=== PATIENT | female | born 1950 | race Caucasian/White ===

== ENCOUNTER 2025-02-11 10:08 | Outpatient (AMB) | payer MEDICARE, SELFPAY ==
--- OUTSIDE RECORDS SUMMARY | 2018-05-07 10:55 | XMS_ITS | Continuity of Care Document ---
Author Organization [facility] Address [address] [address] Phone Care Team Providers Care Home Improvement Contractor Name Role Phone Rishi Sy DO Unavailable Unavailable Allergies, Adverse Reactions, Alerts Substance Reaction Status Criticality shrimp Anaphylaxis(severe) Active No Infor mation peach Anaphylaxis(severe) Active No Infor mation Medications Medication Instructions Dosage Effective Dates (start - stop) Status Comments omeprazole 40 mg capsule,delayed release take 1 capsule by oral route every day before a meal 40 MG - Active Tylenol 325 mg tablet take 2 tablet by oral route every 6 hours - Active guaifenesin 100 mg/5 mL oral liquid take 10 milliliter by oral route every 4 hours as needed 200 MG - Active Ativan 0.5 mg tablet take 0.5 tab tid. ALSO 1 tabs daily prn - Active Ditropan XL 10 mg tablet,extended release take 1 tablet by oral route every day - Active gabapentin 100 mg capsule take 1 Capsule by oral route 3 times every day 100 MG - Active metoprolol tartrate 12.5mg ORAL take 2 tablet bid - Active vitamin B12 500 mcg-folic acid 400 mcg tablet tab daily - Active lidocaine 5 % topical patch apply 1 patch by transdermal route every day (May wear up to 12hours.) 1.00 patch - Active ibuprofen 800 mg tablet take 1 tablet by oral route 3 times every day with food 800 MG - Active Prozac 40 mg capsule take 1 capsule by oral route every day in the morning - Active Calcitrate 200 mg (950 mg) tablet take 1 tablet bid - Active aspirin 81 mg ORAL TABLET take 1tab daily - Active Claritin 10 mg tablet take 1 tablet by oral route every day 10 MG - Active EpiPen 2-Floyd 0.3 mg/0.3 mL injection, auto-injector inject 0.3 milliliter by intramuscular route once as needed for anaphylaxis 0.3 MG - Active Imodium A-D 2 mg tablet take 2 tablet by oral route after 1st loose stool and 1 tablet (2 mg) after each next bowel movement; do not exceed 16 mg in 24hrs 4 MG - Active Milk of Magnesia 400 mg/5 mL oral suspension take 30 milliliter by oral route every day as needed, followed by a full glass (8 oz) of liquid 30.00 milliliter - Active trazodone 50 mg tablet take 1 tablet by oral route every day at bedtime 50 MG - Active Vitamin D3 2,000 unit tablet take 1 tablet daily - Active Colace 100 mg capsule take 1 capsule by oral route 2 times every day as needed 100 MG - Active ProAir HFA 90 mcg/actuation aerosol inhaler inhale 2 puff by inhalation route every 4 - 6 hours as needed - Active Symbicort 80 mcg-4.5 mcg/actuation HFA aerosol inhaler inhale 2 puff by inhalation route 2 times every day in the morning and evening 2.00 puff - Active albuterol sulfate 2.5 mg/3 mL (0.083 %) solution for nebulization inhale 3 milliliter by nebulization route 3 times every day as needed 2.5 MG - Active Zyprexa 10 mg tablet take 1 tablet by oral route every day at bedtime - Active isosorbide mononitrate ER 30 mg tablet,extended release 24 hr take 1 tablet by oral route every day in the morning 30 MG - Active Saline Nasal Mist 0.65 % spray aerosol spray 1 each by nasal route 2 times every day 1 each - Active atorvastatin 20 mg tablet take 1 tablet by oral route every day 20 MG - Active Advance Directives Directive Yes / No Effective Date File Name No Information Encounters Encounter Description Practice Location Reason(s) For Visit Diagnoses Date Provider [facility] [address] [place] [address], [id number], [place] tel:[phone] [place] No Information Apr- 9 Yossi Rishi. [address] [place], [place], [id number] , [place]. tel:[phone] [facility], [facility], [place], [place], [id number], [place] [phone] [place] No Information Dec-2 8 Yossi Rishi. [address] [place], [place], [id number] , [place]. tel:[phone] [facility], [facility] [address] [place] [address], [id number], [place] tel:[phone] [place] Cough Sep-2 0 8 ODohbruno Nicolasa. [address] [place] [address], [id number] , [place]. [phone] [facility] [address] [place] [address], [id number], [place] tel:[phone] [place] No Information Dec- 8 Yossi Beckern. [address] [place], [place], [id number] , [place]. [phone] [facility] [address] [place] [address], [id number], [place] tel:[phone] [place] No Information 8 Nikolay Portillo. 101 [facility] [place], [address], [place]. tel:[phone] [facility], [facility] [address] [place], [id number], [place] tel:[phone] [place] Follow Up of BP (chief complaint) Other chest painSchizoaffective disorder, unspecified 8 Link Bandar. [address] [place], [address], [place]. tel:[phone] [facility], [address], [place], [place], [id number], [place] tel:[phone] [place] Follow Up of BP check (chief complaint) HypertensionOther chest painSchizoaffective disorder, unspecified 8 Link Bandar. [address] [place], [address], [place]. tel:[phone] [facility], [address], [place], [place], [id number], [place] tel:[phone] [place] PHV (chief complaint) Weakness 8 Link Bandar. [address] [place], [address], [place]. tel:[phone] [facility], [address], [place], [place], [id number], [place] tel:[phone] [place] Pain in unspecified wrist 8 Link Bandar. [address] [place], [address], [place]. tel:[phone] [facility], [address], [place], [place], [id number], [place] tel:[phone] [place] PHV (chief complaint) Other chest painHyperglycemiaPatient's other noncompliance with medication regimen 8 Link Bandar. [address] [place], [place], [address], [place]. tel:[phone] [facility], [address], [place], [place], [id number], [place] tel:[phone] [place] No Information 8 Link Bandar. [address] [place], [address], [place]. tel:[phone] [facility], [address], [place], [place], [id number], [place] tel:[phone] [place] PHV (chief complaint) DysarthriaOther chest painAnxiety Oct- 8 [facility]ossi Rishi. [address] [facility] [place], [id number] , [place]. tel:[phone] [facility], [address], [place], [place], [id number], [place] tel:[phone] [place] No Information Sep- 8 Yossi Rishi. [address] [facility] [place], [id number] , [place]. tel:[phone] [facility], [facility] [address], [place], [place], [id number], [place] tel:[phone] [place] No Information 8 Link Bandar. [address] [place], [address], [place]. tel:[phone] [facility], [address], [place], [place], [id number], [place] tel:[phone] [place] Post ER visit (chief complaint) Anxiety 8 Nikolay Portillo. [address] [place], [address], [place]. tel: [phone] [facility], [facility] [address], [place], [place], [id number], [place] tel:[phone] [place] PHV (chief complaint) Anxiety 8 Nikolay Portillo. [address] [place], [address], [place]. tel: [phone] [facility], [address], [place], [place], [id number], [place] tel:[phone] [facility] Anxiety 8 Yossi Rishi. 101 [facility] [place], [id number] , [place]. tel: [phone] [facility], [address], [place], [place], [id number], [place] tel:[phone] [place] PHV (chief complaint) Other chest painAnxiety 8 Nikolay Portillo. [address] [place], [address], [place]. tel: [phone] [facility], [facility] [address], [place], [place], [id number], [place] tel:[phone] [place] Unspecified Intellec tual Disability (Intellectual Developmental Disorder)Encounter for routine adult physical exam w/ abnormal finding 8- 8 Yossi Rishi. 101 [facility] [place], [id number] , [place]. tel:[phone] [facility], [facility] [address], [place], [place], [id number], [place] tel:[phone] [place] Encounter for screen ing for respiratory tuberculosis 8 Nikolay Portillo. [address] [place], [address], [place]. tel:[phone] [facility], [facility] [address], [place], [place], [id number], [place] tel:[phone] [place] Onychomycosis 8 Yossi Rishi. 101 [facility] [place], [id number] , [place]. tel:[phone] [facility], [address], [place], [place], [id number], [place] tel:[phone] [place] PHV (chief complaint) Pneumonia 8 Nikolay Portillo. [address] [place], [address], [place]. tel: [phone] [facility], [facility] [address], [place], [place], [id number], [place] tel:[phone] [place] Essential (primary) hypertension 0 8 Arnold Toney. [address] [place], [address]. tel:[phone] [facility] [address] [place] [address], [id number], [place] tel:[phone] [place] Essential (primary) hypertensionEncounter for screening for respiratory TB 8 Nilo Ackerman Nette Fajardo. [address] [place], [id number] . tel: [phone] [facility], [facility], [place], [place], [id number], [place] tel:[phone] [place] Dysphagia 8 Braydon Christy. [address] [place], [address]. tel: [phone] [facility], [address], [id number], [place] [phone] [place] PEE (chief complaint) HypertensionEncounter for routine adult physical exam w/ abnormal findingHyperlipidemiaOther chest painAsthmaPersonal history of anaphylaxisAllergy, unspecified, subsequent encounterIBSGERD w/ esophagitisDisorder of bone densityVitamin D deficiency, unspecifiedOveractive bladderUnspecified urinary incontinenceEdemaOnychomyc osisOsteoarthritis NOSRheumatoid arthritis, unspecifiedRepeated fallsUnspecified Intellectual Disability (Intellectual Developmental Disorder)DepressionAnxiety Panic disorder [episodic paroxysmal anxiety]Agoraphobia with panic disorderInsomnia, unspecifiedEdentulismVisua l lossDysphagiaConstipationV entricular tachycardia 8 Nikolay Portillo. [address] [place], [address], [place]. tel: [phone] [facility], [address], [id number], [place] tel:[phone] [place] No Information 8 Nikolay Portillo. [address] [place], [address], [place]. tel: [phone] Family History Family Member Type Diagnosis Age At Onset No Information Payers Payer name Insurance type Covered green party ID Winsome cho(s) [facility] 16 [id number] Social History Type Description Quantity Date Captured Comments Sex Female Smoking Status No Information Chief Complaint And Reason For Visit No Information Plan Of Treatment Date Type Action Status Referral Ordered: Referrals: Psychiatry. Evaluate and treat Appointment date/timeframe: 09/25/2017 ordered Referral Ordered: Referrals: Dentistry. Evaluate and treat ordered Referral Ordered: Referrals: Podiatry. Evaluate and treat ordered Referral Ordered: Referrals: Ophthalmology. Evaluate and treat Appointment date/timeframe: 10/04/2017 ordered Referral Referred To: Physical Therapy Ordered: Referrals: Physical Therapy. Evaluate and treat ordered History Of Present Illness Encounter Date Complaint History Of Prese nt Illness Follow Up of BP [facility]. She again presented with a chief complaint of chest pain which was intermittent over the previous 2 weeks. She reported that it radiated to her left arm and was brought on by exertion. She also reported feeling weak. She felt like she was going to pass out. She thinks it might have been related to what she was eating. The emergency room performed an extensive workup including labs, telemetry and EKG. These were negative. In addition a CTA of the chest and abdomen were negative for aneurysm or dissection. Following completion of this workup she was discharged in stable condition. Follow Up of BP check He comes t o clinic for post ER follow-up. She has had 2 recent visits November 04 of November 15. Her presentation is not different in any significant way from her previous visits. As expected she ruled out for an PA, telemetry was normal and other workup was negative. She did contact [facility] prior to going to the emergency room cases. However she did not follow instructions to wait until she could be evaluated in clinic. She has had a number of elevated blood pressure readings within recent weeks. Some of his I's 160-180 systolic. She is getting her medications as directed because they are dispensed to her.Her mental health issues continue to be significant problem with her management. Her anxiety and delusions are certainly not under control. She has been compliant with seeing the psychiatrist. Some medications have been changed. There have been notable improvements in her behavior. She has an upcoming appointment soon. 1 disturbing aspect of her behavior was that she went to [facility] on 2 occasions using a pseudonym, Marianela Aaron. She has a delusion that her last name is incorrect. DAVID Ruiz comes [facility] following an ER visit. Over the previous few days she reported to the on-call provider that she felt shaky and weak. She was eating her meals regularly as instructed. Nonetheless, she did not feel well. She reports that she felt as though she were going to pass out. She made several phone calls to call provider with ongoing symptoms. She thought that she was having a diabetic reaction. She denied any headache, dizziness, confusion or pain. Ultimately she went to the emergency room. She cannot provide details regarding the workup but apparently she was on a heart monitor. She was subsequently discharged in satisfactory condition. DAVID Repeated ER visi t for CP and c/o abn blood sugars. Multiple evaluations for CP previously as already documented. Todays episode is not significantly different than prior ones. Negative w/u. ER doctor concluded pain is noncardiac. She was discharged in stable condition. Sara also insists that she has DM or problems with her BS. Review of 5 years of blood sugars reveals that no blood sugars were >151 and none were <79. A1C also normal. No evidence for DM despite her insistents. She has had 15 ER visits so far this year and she has not consistently complied with instructions to call [facility] before going to the ER. DAVID Ruiz comes [facility] for post ER follow-up she was seen in the emergency room October 01 with a chief complaint of slurred speech she reported difficulty getting the words out. She also reportedly had some bilateral arm and leg weakness. She underwent a thorough exam included a BMP, CBC and troponins. EKG was unremarkable. CT scan showed no acute pathology. Physical exam was unremarkable. Slurred speech was previous complaint that has been evaluated. She was discharged home in stable condition.It has been 4 weeks since that episode and reports feeling well without any complaints of neurologic symptoms. In addition she has no complaints of chest pain or shortness of breath which are common symptoms for her. She indicates that she feels generally well. She confirms that her psychiatrist has made some medication adjustments. She indicates that she keeps her so busy which keeps her mind off somatic concerns Post ER visit Sara comes [facility] follow-up. The day prior to her visit she reported that she felt faint. Next day she contacted [facility] spoke with the triage nurse. She felt that she had a low blood sugar. She felt weak and lightheaded. It was recommended that she eat something, sit, relax and take deep breaths. Of note from the dozens of previous ER visits has been no results consistent with diabetes or hypoglycemia. Sara was not convinced and went to the emergency room. Blood work was negative for hypoglycemia. Evaluation was negative for any other acute issues. She was subsequently discharged. As noted previously she has exhibited this behavior for many many years and has been to the emergency room and had negative workups several dozens of times. Her psychiatrist, Dr. Diaz, has been contacted and does not feel as though medications need to be changed. It has been suggested by [facility] that he consider a new psychiatrist DAVID presented to the ER again with c/o dizziness. symptoms had begun that day. she apparently called [facility] before leaving but did not wait for the return call from the enterprise integration architect provider. she felt faint. no other focal neuroloic symptoms are reported. no LOC. associated with anxiety. on ROS she indicated that she also had CP but denied SOB/N/V/Abd pain. She also denied HAWLEY. many previous simlar episodes before and many previous ER w/u have but negative for cardiac or neurologic etiology. DAVID [facility]iz [facility]. This is her third ER visit in the month of August and 10 ER visits since 2017 and 20 ER visits/hospitalizations in 2017. She has had 3 negative nuclear stress tests within the past 5 years. She describes anterior costochondral chest pain as being severe. She reports that it radiates to her left arm. She reports associated shortness of breath unrelieved by resting. She indicates that the chest pain has continued for as long as a week. Nonetheless, she routinely walks 2 her laundry mat which is close to a mile away carrying her clothes on her walker. Taken all together my conclusion from all of this is that she has noncardiac chest pain. She was recently prescribed lidocaine ointment to alleviate this pain. She indicates that Tylenol is ineffective.She has previously been seen in the ER on multiple occasions for hypoglycemic symptoms and lightheadedness. Many blood sugar readings show no hypoglycemia. A1c is negative for diabetes and she is on no medications which would precipitate hypoglycemia. No etiology has been determined to be causing lightheadedness. Vital signs do not support orthostatic hypotension.She has a lifelong history of developmental delay. She also has uncontrolled anxiety. She is currently on Prozac 40 mg daily, Ativan 0.5 mg, one half tab 3 times a day and 1 tab daily when necessary, trazodone 50 mg daily at bedtime and Zyprexa 10 mg daily at bedtime. These has been prescribed her psychiatry provider, Dr. Diaz, at [facility]. PHV Patient comes to clinic for posthospital follow-up. She presented to the emergency room on August 23. She reports waking up with chest discomfort and shortness of breath. She had a nonproductive cough. She felt lightheaded and shaky. She underwent a cardiac workup including an EKG and troponins which were negative. She did have a chest x-ray which was consistent with a left lower lobe pneumonia. She was started on a Z-Floyd and has just completed. She reports feeling significantly better. There are no fevers and oxygen saturation is acceptable. ROSI Ruiz comes [facility] for her posted moment of evaluation. Despite her mental retardation she lived in her own apartment for more than 10 years. It is reportedly clean and well maintained. She is independent with all of her ADLs. She transfers and ambulates independently using her walker. She has a EMS system in place. She dresses and bathes herself. She is reportedly capable of preparing meals to some degree. She has a sister who is also in the [facility] program, Crystal Yañez, but they are not close and it is suggested that they utilize the adult day program on different days. Because of her developmental disabilities she has a guardian, firmware manager Josefina Naranjo ([phone]). She is also supported by [facility] (sample case porter, Zhanna Rodriguez) which includes an outreach support team providing 15 hours per week and assisting her with shopping, appointments, light housecleaning and some cleaning.Past medical history is as documented below. She takes her medications as directed. Her medications are organized by the visiting nurses. Her blood pressure is controlled on her current medical regimen. She is on a statin hyperlipidemia. She has a history of noncardiac chest pain. She has been to the ER on many, many occasions for chest pain or dizziness. She has ruled out for PA on many, many occasions. She has had many negative nuclear stress tests and echocardiograms, most recently performed in February 2017. She has a history for asthma and she uses inhalers originally prescribed by her traffic engineering technician, Dr. Lui Cruz. She has a history of anaphylaxis to bee stings and has a prescription for EpiPen's. She has environmental allergies and uses Claritin and saline spray. She has a history for dysphagia which was worked up with a barium swallow and subsequently the speech therapist recommended swallowing techniques and swallowing exercises. She has a history of GERD on PPI. She has a history of diarrhea and constipation for which she takes when necessary milk Magnesia, Colace or Imodium.. She has a history mild osteopenia with a T score of 1.3 the hip from a DEXA done in 2014. She is on calcium and vitamin D. She has a history for overactive bladder and is on oxybutynin for this. This was originally prescribed by her urologist, Dr. Best. In addition she has incontinence for which she uses incontinence products. She has a history for dependent edema. She also has onychomycosis of her toenails. She has a history of DJD and RA?. She is only on Tylenol when necessary for this. She has a history of repeated falls. As noted she uses a walker she is interested in seeing physical therapy. She has a long lifelong developmental disability. She has been connected with mental health services. She has a legal guardian as noted. She sees a psychiatrist, , for her issues. He prescribes all of her mental health medications.Currently, she was without significant complaint. 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 Instructions Date Instruction Additional Infor mation No Information Assessments Type Assessment Date No Information Goals Health Concern Goal Type Priority Status Date Sara is a high risk for functional decline related to Cognitive Impairment, depression, panic disorder, and anxiety. Sara will remain living safely in the community at her current level of functioning through the next review. Patient Goal New
--- NOTE | 2025-02-11 10:09 | MHC.OFFVIS ---
Intake Visit Reasons: 6m sz Allergies cat dander (CAT) Allergy (Unknown, Unverified 02/11/25 10:10) SWELLING Penicillins (PCN) Allergy (Unknown, Unverified 02/11/25 10:10) unknown shrimp (SHRIMP) Allergy (Unknown, Unverified 02/11/25 10:10) SWELLING Medication List - Last Reconciled 02/11/25 by Marlen Petty CNP aspirin 81 mg PO DAILY atorvastatin 20 mg PO DAILY calcium citrate-vitamin D3 315 mg-5 mcg (200 unit) tabs PO clonidine HCl 0.1 mg PO BID cyanocobalamin (vitamin B-12) mcg PO docusate sodium 100 mg PO BID epinephrine mL IM fluoxetine 40 mg PO DAILY gabapentin 100 mg PO TID isosorbide mononitrate ER 30 mg PO DAILY levetiracetam 500 mg PO BID loratadine 10 mg PO DAILY lorazepam mg PO metoprolol tartrate 25 mg PO DAILY mometasone 50 mcg/actuation 2 sprays intranasal DAILY olanzapine 10 mg PO BEDTIME olanzapine 5 mg PO BEDTIME omeprazole 40 mg PO DAILY oxybutynin chloride ER 10 mg PO DAILY sennosides (senna) mg PO DAILY trazodone 50 mg PO BEDTIME HPI Comments Details: She was doing okay. No seizures. Shaking in her hands was okay, worse when nervous. No functional impairment. No difficulty eating or drinking. Walking with walker, no falls. Behavior has been on and off. Sleep was okay. Some auditory hallucinations in the past. On 05/01/18, she may have had a syncopal episode at home. She says she has poor vision and says that she does not feel anything on her body. She had a CAT scan of her brain, which showed some microvascular changes and irregular low density in the frontal lobe possibly indicating contusion. She had a CT of the cervical spine that did not show any acute injuries. She claims to have very poor vision. MRI showed microvacsular changes and atrophy and a small incidental meningioma. EEG showed prolonged paroxysmal theta and delta discharges c/w seizures. [facility] Medical History (Updated 02/11/25 @ 10:25 by Marlen Petty CNP) Strabismus Schizophrenia Afib COPD (chronic obstructive pulmonary disease) Asthma Hypertension Depression Anxiety Review of Systems Const Denies chills, Denies daytime sleepiness, Denies difficulty sleeping, Denies fatigue, Denies fever(s), Denies frequent falls, Denies headache(s), Denies increased appetite, Denies poor appetite, Denies snoring, Denies weakness, Denies weight gain and Denies weight loss Eyes Denies loss of vision ENT Denies vertigo, Denies dizziness, Denies headache(s) and Denies neck pain Card Denies chest pain at rest, Denies chest pain with activity, Denies syncope, Denies leg edema, Denies palpitations, Denies dyspnea and Denies dyspnea on exertion Resp Denies cough, Denies dyspnea, Denies dyspnea on exertion and Denies snoring GI Denies abdominal pain, Denies constipation, Denies heartburn, Denies diarrhea and Denies nausea Denies urinary frequency, Denies urinary incontinence and Denies urinary urgency Musc Denies abnormal gait, Denies back pain, Denies myalgias, Denies arthralgias, Denies neck pain, Denies numbness and Denies tingling Neuro Denies abnormal gait, Denies vertigo, Denies dizziness, Denies syncope, Denies frequent falls, Denies headache(s), Denies lack of coordination, Denies loss of vision, Denies memory loss, Denies numbness, Denies Other visual disturbances, Denies restless legs, Denies seizure-like activity, Denies tingling, Denies paresthesias, Reports tremor(s) and Denies weakness Psych Reports anxiety, Denies depression, Denies auditory hallucinations, Denies memory loss and Denies visual hallucinations Endo Denies fatigue and Denies palpitations Physical Exam Const Other: General Appearance:? normal, in no acute distress. Heart:? S1, S2 normal, no murmurs. Lungs:? clear anteriorly and posteriorly. Musculoskeletal:? normal. Extremities:? no edema. Psych:? alert, cooperative with exam. Neuro Other: Abnormal Neurological Findings:?Mild intellectual disability. EOM abnormalities, says she cannot move her eyes. No abduction of either eye and limited adduction. Mild jaw tremor. Mild R hand tremor on sustained posture. Very slight rigidity to L hand. Walks with walker.? Mental Status: alert and oriented X 3. Normal attention, orientation, memory, and affect. Cranial Nerves: Pupils are equal, round, and reactive to light. External ocular muscles are abnormal. Visual gordon are full, no ptosis. Face is symmetrical, no facial weakness or droop. Facial sensations are normal. Tongue protrudes in midline. Palate elevates symmetrically. Shoulder shrugging is normal Motor Examination: Normal muscle tone, bulk and strength. No atrophy or fasciculations. No drift of the extended upper extremities. DTR 2+. Plantars are flexor. Sensory Exam: Normal light touch, temperature, pinprick, vibration, and joint-position sensations. Rhomberg sign is absent. Coordination: No ataxia. No titubation. Gait Exam: Cautious with walker. Cerebellar Signs: [id number]-[id number] is okay. Extrapyramidal System: Tremor as above. No rigidity with normal facial expressions. No bradykinesia. No bradyphrenia. Normal arm swing and posture. No propulsion or retropulsion. Speech: Normal. Results Reviewed Results Reviewed: 05/01/18 MRI showed microvacsular changes and atrophy and a small incidental meningioma. EEG showed prolonged paroxysmal theta and delta discharges c/W seizures. 06/10/18 EEG- ABN. DIFF. SLOW. Assessment & Plan Assessment & Plan (1) Seizure disorder: Code(s): G40.909 - Epilepsy, unspecified, not intractable, without status epilepticus Category: Medical Plan: Continue levetiracetam 500mg 1 tablet twice a day. (2) Tremor: Code(s): R25.1 - Tremor, unspecified Category: Medical Plan: Tremor was mild and there was no significant functional impairment. No medication was needed at this time. Medications: New levetiracetam 500 mg PO BID 60 tabs 5RF 30 days Coding Level of Care Code Est Pt Level 4 (63919) Diagnoses Seizure disorder G40.909 Tremor R25.1
--- OUTSIDE RECORDS SUMMARY | 2025-02-11 12:14 | XMS_ITS | Encounter Summary ---
Author Organization [facility] Address [address] [place] [address] Care Team Providers Care Echocardiography Radiology Technologist Name Role Phone Jeremias Wilkins MD Primary Care Provider [phone] Encounter Details Date Type Department Care Team ([facility] Contact Info) Description 01/29/2025 Results Follow-Up Endocrinology [address] [phone] Amando Newman MD [address] [place] [phone] Social History Tobacco Use Types Packs/Day Years Used Date Smoking Tobacco: Former Smokeless Tobacco: Never Alcohol Use Standard Drinks/Week Comments No 0 (1 standard drink = 0.6 oz pur e alcohol) Comments No Sex and Gender Information Value Date Recorded Sex Assigned at Female 10/22/2024 10:01 AM EDT Legal Sex Female 10:00 PM EST Gender Identity Female 10/22/2024 10:01 AM EDT Sexual Orientation Straight 10/22/2024 10 :01 AM EDT documented as of this encounter Plan of Treatment Upcoming Encounters Date Type Department Care Team ([facility] Contact Info) Description 04/05/2025 9:15 AM EST Office Visit Orthopedic Surgery - [place] [address] [place] [phone] James Cardona, DPM [address] [place] [phone] 04/12/2025 8:00 AM EST Office Visit Internal Medicine - [address] [place] [phone] Kurtis Parekh PA [address] [place] [address] 04/27/2025 9:30 AM EST Office Visit Endocrinology [address] [phone] Amando Newman MD [address] [place] [address] documented as of this encounter Visit Diagnoses Not on filedocumented in this encounter Additional Health Concerns Assessment Noted Time PHQ-9 Depression Total Score: 0 04/06/20 4:09 PM EST A fall risk assessment has been complete d for the patient 04/06/2024 4:07 PM EST documented as of this encounter Care Teams Echocardiography Radiology Technologist Relationship Specialty Start Date End Date Jeremias Wilkins MD [address] [place] [id number] PCP - General Internal Medicine 03/16/21 documented as of this encounter
--- OUTSIDE RECORDS SUMMARY | 2025-02-11 12:14 | XMS_ITS | Clinical Summary ---
Author Organization [facility] Address [address] [place] [address] Care Team Providers Care Patcher Helper Name Role Phone Jeremias Wilkins MD Primary Care Provider [phone] Allergies Active Allergy Reactions Criticality Noted Date Comments Animal Dander 12/07/2015 Bee Sting 12/07/2015 Dust 12/07/2015 Latex 12/07/2015 Penicillins 10/26/2020 Prunus Persica 11/15/2016 Seasonal 12/07/2015 Shrimp 12/07/2015 Medications Medication Sig Dispensed Refills Start Date End Date Status acetaminophen (TYLENOL) 325 MG tablet 0 09/24/2023 Active Aspirin Low Dose 81 MG EC tablet 0 09/11/2023 Active atorvastatin (LIPITOR) tablet 20 mg 0 09/11/2023 Active ammonium lactate (LAC-HYDRIN) 12 % lotion Apply to toenails daily as a nail softener. At night wear socks to bed 0 01/24/2023 Active Calcium Citrate-Vitamin D 315-5 MG-MCG TABS 0 09/11/2023 Active Ear Drops 6.5 % otic solution 0 09/24/2023 Active cloNIDine (CATAPRES) tablet 0.1 mg 0 09/24/2023 Active Cyanocobalamin [address] 500 mcg under the tongue. 0 03/25/2023 Active docusate sodium (COLACE) 100 MG capsule 0 09/11/2023 Active FLUoxetine (PROzac) 40 MG capsule 0 09/11/2023 Active fluticasone (FLONASE) 50 MCG/ACT nasal spray 0 09/24/2023 Active gabapentin (NEURONTIN) 100 MG capsule 0 09/11/2023 Active isosorbide mononitrate (IMDUR) 30 MG 24 hr tablet 0 09/11/2023 Active levETIRAcetam (KEPPRA) 500 MG tablet 0 09/11/2023 Active loperamide (IMODIUM A-D) 2 MG tablet Take 1 tablet (2 mg total) by mouth. 0 09/24/2023 Active loratadine (CLARITIN) 10 MG tablet 0 09/11/2023 Active LORazepam (ATIVAN) 0.5 MG tablet 0 09/26/2023 Active metoprolol tartrate (LOPRESSOR) 25 MG tablet TAKE (1/2) TABLET BY MOUTH TWICE A DAY 0 08/28/2023 Active naproxen (NAPROSYN) 500 MG tablet 0 09/24/2023 Active OLANZapine (ZyPREXA) 10 MG tablet 0 06/19/2021 Active omeprazole (PriLOSEC) 40 MG capsule Take 1 capsule (40 mg total) by mouth daily. 0 08/28/2023 Active senna (SENOKOT) 8.6 MG tablet Take 1 tablet by mouth every night at bedtime. 0 08/28/2023 Active tolnaftate (TINACTIN) 1 % external solution Apply topically to toenails 0 01/24/2023 Active traZODone (DESYREL) 50 MG tablet Take one tablet nightly as needed for sleep 0 01/18/2022 Active Active Problems Problem Noted Date Diagnosed Date Osteoporosis 09/30/2023 Social History Tobacco Use Types Packs/Day Years Used Date Smoking Tobacco: Never Assessed Sex and Gender Information Value Date Recorded Sex Assigned at Not on file Gender Identity Not on file Sexual Orientation Not on file Job Start Date Occupation Industry Not on file Not on file Not on file Last Filed Vital Signs Vital Sign Reading Time Taken Comments Blood Pressure 110/65 10/01/2023 1:57 PM EDT Pulse 60 10/01/2023 1:57 PM EDT Temperature 37.2 C (98.9 F) 10/01/2023 1:57 PM EDT Respiratory Rate - - Oxygen Saturation 97% 10/01/2023 1:57 PM EDT Inhaled Oxygen Concentration - - Weight 64 kg (141 lb) 10/01/2023 1:57 PM EDT Height - - Body Mass Index - - Plan of Treatment Health Maintenance Due Date Last Done Comments Hepatitis C Screening 1950 COVID-19 Vaccine (#1) 1950 Depression Screening 1963 Preventative Health Evaluation 06/13/1969 Colon Cancer Screening (Colonoscopy) 06/13/1996 Breast Cancer Screening (Mammogram) 06/13/2001 Shingrix-Zoster Vaccine (1 of 2) 06/13/2001 Fall Risk Assessment 06/13/2016 Osteoporosis Screening (DEXA Scan) 06/13/2016 Influenza Vaccine (#1) 2024 3, 01/18/2022, 02/28/2021, Additional history exists DTap / Tdap / Td (2 - Td or Tdap) 01/01/2026 01/02/2016 RSV Adult > 60+ Yrs or (1 - 1-dose 75+ series) 06/13/2026 Pneumococcal Vaccine Completed 04/26/2021, 04/10/2017, 03/06/2016 Hepatitis B Vaccines Aged Out No long er eligible based on patient's age to complete this topic RSV Ped < 20 months Aged Out No longe r eligible based on patient's age to complete this topic Care Teams Patcher Helper Relationship Specialty Start Date End Date Jeremias Wilkins MD [address] [place] [id number] PCP - General Internal Medicine 10/01/23
--- OUTSIDE RECORDS SUMMARY | 2025-02-11 12:14 | XMS_ITS | Clinical Summary ---
Author Organization [facility] [address] [place] [address] [place] [phone] Phone Care Team Providers Care Primary Counselor Name Role Phone Jeremias Wilkins MD Primary Care Provider [phone] Allergies Active Allergy Reactions Criticality Noted Date Comments Bee Venom Protein (Honey Bee) 2015 Cat Dander 12/07/2015 House Dust 12/07/2015 Latex 12/07/2015 [place] 01/22/2024 Penicillins 10/26/2020 Pollen Extracts 12/07/2015 Shrimp 12/07/2015 Medications bacitracin 500 unit/gram ointment Apply to affected area twice daily as needed 09/24/19 24 Active levETIRAcetam (KEPPRA) 500 mg tablet Take 1 tablet (500 mg total) by mouth 2 (two) times a day. Active traZODone (DESYREL) 50 mg tablet Take one tablet nightly as needed for sleep 01/19/20 22 Active FLUoxetine (PROzac) 40 mg capsule 06/20/19 22 Active LORazepam (ATIVAN) 0.5 mg tablet Take 1 Tab by mouth every 8 hours as needed for Anxiety. 03/18/20 19 Active OLANZapine (ZyPREXA) 10 mg tablet 06/20/19 22 Active OLANZapine (ZyPREXA) 5 mg tablet 06/20/19 22 Active cloNIDine (CATAPRES) 0.1 mg tablet 09/24/19 24 Active zoledronic acid (RECLAST) 5 mg/100 mL piggybackIndicat ions:Osteoporosi s without current pathological fracture, unspecified osteoporosis type Infuse 100 mL (5 mg total) into a venous catheter 1 (one) time for 1 dose. 100 mL 09/22/19 25 Active EPINEPHrine (EpiPen 2-Floyd) 0.3 mg/0.3 mL injection Inject 0.3 mL (0.3 mg total) into the thigh if needed for anaphylaxis. 2 each 08/26/19 25 Active senna (SENOKOT) 8.6 mg tablet Take 1 tablet (8.6 mg total) by mouth 1 (one) time each day. at bedtime 90 tablet 1 10/10/19 25 Active oxyBUTYnin XL (DITROPAN-XL) 10 mg 24 hr tablet Take 1 tablet (10 mg total) by mouth 1 (one) time each day. 90 tablet 1 10/10/19 25 Active omeprazole (PriLOSEC) [address] capsule Take 1 capsule (40 mg total) by mouth 1 (one) time each day. 90 capsule 1 10/10/19 25 Active metoprolol tartrate (LOPRESSOR) 25 mg tablet Take 0.5 tablets (12.5 mg total) by mouth 2 (two) times a day. 90 tablet 1 10/10/19 25 Active loratadine (CLARITIN) 10 mg tablet Take 1 tablet (10 mg total) by mouth 1 (one) time each day. 90 tablet 1 10/10/19 25 Active isosorbide mononitrate (IMDUR) 30 mg 24 hr tablet Take 1 tablet (30 mg total) by mouth 1 (one) time each day. 90 tablet 1 10/10/19 25 Active gabapentin (NEURONTIN) 100 mg capsule Take 1 capsule (100 mg total) by mouth 3 (three) times a day. 270 each 1 10/10/19 25 025 Active docusate sodium (COLACE) 100 mg capsule Take 1 capsule (100 mg total) by mouth 2 (two) times a day. 180 capsule 1 10/10/19 25 Active cyanocobalamin (VITAMIN B-12) 500 mcg tablet Take 1 tablet (500 mcg total) by mouth 2 (two) times a day. 180 each 1 10/10/19 25 025 Active atorvastatin (LIPITOR) 20 mg tablet Take 1 tablet (20 mg total) by mouth 1 (one) time each day. 90 tablet 1 10/10/19 25 Active aspirin 81 mg EC tablet Take 1 tablet (81 mg total) by mouth 1 (one) time each day. 90 tablet 1 10/10/19 25 Active acetaminophen (TYLENOL) 325 mg tablet Take 1.5 Tablets by mouth every 6 hours as needed for Pain. TAKE 1 & 1/2 TABLETS BY MOUTH EVERY 6 HOURS NEEDED FOR PAIN 90 tablet 1 10/10/19 25 Active fluticasone propionate (FLONASE) 50 mcg/actuation nasal spray Administer 1 spray into each nostril 1 (one) time each day. Shake gently. Before first use, prime pump. After use, clean tip and replace cap. Active naproxen (EC NAPROSYN) 500 mg EC tablet Take 1 tablet (500 mg total) by mouth every 4 (four) hours if needed for mild pain. Do not crush, chew, or split. Active mometasone (NASONEX) 50 mcg/actuation nasal spray ADMINISTER 2 SPRAYS INTO EACH NOSTRIL TWICE DAILY. 17 g 2 02/03/20 25 Active mometasone (NASONEX) 50 mcg/actuation nasal spray Administer 2 sprays into each nostril 2 (two) times a day. 17 g 3 11/04/19 25 025 Discontinued Active Problems Problem Noted Date Diagnosed Date Osteoporosis 01/18/2023 Seizure disorder ([facility] V24, [facility] V28) 04/16 Assessment & Plan (04/06/2024 4:25 PM EST): Esophageal dysmotility 07/09/2017 Hiatal hernia 07/09/2017 Diastolic dysfunction 02/18/2017 Pulmonary nodule 11/15/2016 Overview (01/22/2024): 1.2 cm ovoid nodular density in rt mid upper lung- rpt in one year Conversion disorder 02/14/2016 GERD (gastroesophageal reflux disease) 6 Overview (01/22/2024): Barium swallow- 06/30- reflux, with hiatal hernia and esophageal dysmotility Intellectual disability 02/14/2016 Assessment & Plan (04/06/2024 4:25 PM EST): Multilevel degenerative disc disease 02/14/2016 Overview (01/22/2024): Dr Mainor Samson Schizophrenia ([facility] V24, [facility] V28) 016 Assessment & Plan (04/06/2024 4:25 PM EST): Anxiety 12/07/2015 Assessment & Plan (04/06/2024 4:25 PM EST): COPD (chronic obstructive pu lmonary disease) ([facility] V24, [facility] V28) 12/07/2015 Overview (01/22/2024): Follows with Dr wilfrido Rodriguez 12/07/2015 Overview (01/22/2024): Follows with Dr De La Paz Assessment & Plan (04/06/2024 4:25 PM EST): HTN (hypertension) 12/07/2015 Overview (01/22/2024): Follos with Dr Kal Jiang Assessment & Plan (04/06/2024 4:25 PM EST): Orders: Comprehensive metabolic panel; Future Lipid panel with reflex to direct LDL; Future Hyperlipidemia 12/07/2015 Assessment & Plan (04/06/2024 4:25 PM EST): Orders: Comprehensive metabolic panel; Future Lipid panel with reflex to direct LDL; Future Recurrent UTI 12/07/2015 Overview (01/22/2024): Follows with Dr Best Encounters Date Type Department Care Team Description 02/04/2025 Telephone Internal [facility] [address] [facility] [place] [phone] Jeremias Wilkins MD 02/01/2025 Telephone Internal Medicine - [facility] [address] [facility] [place], [place] [phone] Jeremias Wilkins MD 01/29/2025 Results Follow-Up Endocrinology - [place] [address] [place] [address] Amando Newman MD 01/26/2025 8:30 AM EDT - 01/26/2025 11:59 PM EDT Hospital Encounter [facility] Bone Density [address] [place] [phone] Osteoporosis without current pathological fracture, unspecified osteoporosis type Discharge Disposition: Home or Self Care 01/08/2025 9:15 AM EDT Office Visit Orthopedic Surgery - [place] [address] [facility] [address] [place] [address] James Cardona, DPM Dermatophytosis of nail (Primary Dx); Ingrowing nail; Acquired hammer toe of right foot; Hammer toe of left foot from Last 3 Months Immunizations Immunization Administration Dates Next Due Influenza trivalent, 0.5mL ( Fluzone High-dose) 65yo and older 03/25/2023,01/18/2022,02/28/2021,01/26,02/13/2018 Influenza trivalent, with pr eservative (Fluzone; Afluria) 6mo and older 03/06/2016 Moderna SARS-CoV-2 COVID-19, mRNA, LNP-S, preservative free 03/02/2021,08/30/2020,08/02/2020 PPD Test 06/15/2020 Pneumococcal conjugate 13 va lent (Prevnar 13, PCV13) 2mo and older 04/10/2017 Pneumococcal polysaccharide 23 valent (Pneumovax 23) 2yo and older 04/26/2021,03/06/2016 Tdap Tetanus diptheria acell ular pertussis (Boostrix; Adacel) 7yo and older 01/02/2016 Surgical History Surgery Date Site/Laterality Comments HYSTERECTOMY PROCEDURE: HISTORICAL HYSTERECTOMY OTHER SURGICAL HISTORY Bilateral PROCEDURE: [place] ICAPSULAR CATARACT XTRJ INSJ IO LENS PRSTH 1 STG COLONOSCOPY 12/18/2016 PROCEDURE: HISTORICAL COLONOSCOPY; COMMENT: Muslu@[facility]; negative but only fair prep, recommended again in 5 years. BREAST BIOPSY 08/2021 Left PROCEDURE: BX BREAST; PERC NEEDLE CORE W/IMAG GUID; COMMENT: dilated ducts Medical History Medical History Date Comments HTN (hypertension) 12/07/2015 DX:HTN (hyper tension) COPD (chronic obstructive pu lmonary disease) ([facility] V24, [facility] V28) 12/07/2015 DX:COPD (chronic o bstructive pulmonary disease) ([facility]) Hyperlipidemia 12/07/2015 DX:Hyperlipidemi a Anxiety 12/07/2015 DX:Anxiety Depression 12/07/2015 DX:Depression GERD (gastroesophageal reflux disease) 02/14/2016 DX:GERD (gastroesophageal reflux disease) Mental retardation 02/14/2016 DX:Mental ret ardation Schizophrenia ([facility] V24, [facility] V28) 02/14/2016 DX:Schizophrenia ([facility]) Conversion disorder 02/14/2016 DX:Conversio n disorder Multilevel degenerative disc disease 02/14/2016 DX:Multilevel degenerative disc disease; COMMENT: Dr Mainor Samson Pulmonary nodule 11/15/2016 DX:Pulmonary no dule Diastolic dysfunction 02/18/2017 DX:Diastol ic dysfunction Family History Medical History Relation Name Comments Hypertension Father Other cancer Father Hypertension Mother Other cancer Mother Asthma Sister Relation Name Status Comments Brother Father Mother Sister Alive Social History Tobacco Use Types Packs/Day Years Used Date Smoking Tobacco: Former Smokeless Tobacco: Never Tobacco Cessation:Counseling Given: Not Answered Alcohol Use Standard Drinks/Week Comments No 0 (1 standard drink = 0.6 oz pur e alcohol) Comments No Sex and Gender Information Value Date Recorded Sex Assigned at Female 10/22/2024 10:01 AM EDT Legal Sex Female 10:00 PM EST Gender Identity Female 10/22/2024 10:01 AM EDT Sexual Orientation Straight 10/22/2024 10 :01 AM EDT Obstetrics History Para Term AB IAB SAB Ectopic Multiple Livin g Live Births 0 0 0 0 Last Filed Vital Signs Vital Sign Reading Time Taken Comments Blood Pressure 124/69 10/22/2024 10:09 AM EDT Pulse 58 10/22/2024 10:09 AM EDT Temperature 36.5 C (97.7 F) 10/22/2024 10:09 AM EDT Respiratory Rate 20 10/22/2024 10:09 AM EDT Oxygen Saturation 98% 10/22/2024 10:09 AM EDT Inhaled Oxygen Concentration - - Weight 66 kg (145 lb 9.6 oz) 10/22/2024 10:09 AM EDT Height 157.5 cm (5' 2.01 ) 09/03/2024 10:06 AM E DT Body Mass Index 26.62 09/03/2024 10:06 AM EDT Plan of Treatment Upcoming Encounters Date Type Department Care Team (Late st Contact Info) Description 04/05/2025 9:15 AM EST Office Visit Orthopedic Surgery - [place] [address] [place] [phone] James Cardona, DPM [address] [place] [address] 04/12/2025 8:00 AM EST Office Visit Internal Medicine - [address] [phone] Kurtis Parekh PA [address] [place] [phone] 04/27/2025 9:30 AM EST Office Visit Endocrinology [address] [phone] Amando Newman MD [address] [place] [phone] Health Maintenance Due Date Last Done Comments RSV Immunization Adult Patients (1 - Risk 50-74 years 1-dose series) 06/13/2001 Zoster Vaccines (1 of 2) 06/13/2001 Social Influencers of Health Screening 03/24/2022 Depression Screening 04/15/2024 04/06/2024 COVID-19 Vaccine ( season) 2024 03/02/2021, 08/30/2020, 08/02/2020 Influenza Vaccine (#1) 2024 , 03/25/2023, 01/18/2022, Additional history exists Medicare Annual Wellness Visit 04/06/2025 04/06/2024 Colorectal Cancer Screening: Colonoscopy 08/14/2025 08/14/2022 Hypertension/CHF/CAD Annual BMP Blood Test 10/14/2025 10/14/2024, 05/28/2024, 04/06/2024, Additional history exists [place] Risk Assessment 10/22/2025 10/22/2024, 024 DTaP,Tdap,and Td Vaccines (3 - Td or Tdap) 01/01/2026 01/02/2016, 12/12/2008 Breast Cancer Screening 08/28/2026 08/29/19, 08/20/2023, 08/20/2023, Additional history exists Cholesterol Screening (Lipid Panel) 04/06/2029 04/06/2024, 10/01/2022 Osteoporosis Screening (Bone Density Screening) 01/26/2030 01/26/2025, 01/17/2023, 09/24/2016 Hepatitis C Screening Completed 03/06/2016 Pneumococcal Vaccine: 50+ Years Completed 04/26/2021, 04/10/2017, 03/06/2016, Additional history exists HIB Vaccines Aged Out No longer eligi ble based on patient's age to complete this topic HPV Vaccines Aged Out No longer eligi ble based on patient's age to complete this topic Hepatitis A Vaccines Aged Out No long er eligible based on patient's age to complete this topic Hepatitis B Vaccines Aged Out No long er eligible based on patient's age to complete this topic IPV Vaccines Aged Out No longer eligi ble based on patient's age to complete this topic MMR Vaccines Aged Out No longer eligi ble based on patient's age to complete this topic Meningococcal ACWY Vaccine Aged Out N o longer eligible based on patient's age to complete this topic Meningococcal B Vaccine Aged Out No l onger eligible based on patient's age to complete this topic RSV Immunization Patients Under 20 months Aged Out No longer eligible based on patient's age to complete this topic Varicella Vaccines Aged Out No longer eligible based on patient's age to complete this topic Procedures Procedure Name Priority Date/Time Associated Diagnosis Comments BD BONE DENSITY DXA AXIAL SKELETON Routine 01/26/2025 8:58 AM EDT Osteoporosis without current pathological fracture, unspecified osteoporosis type CREATININE, SERUM Routine 10/14/2024 4:1 2 PM EDT Osteoporosis, unspecified osteoporosis type, unspecified pathological fracture presence MG MAMMO DIGITAL SCREENING W SPENSER BILAT Routine 08/28/2024 10:12 AM EDT Encounter for screening mammogram for breast cancer LIPID PANEL WITH REFLEX TO DIRECT LDL Routine 04/06/2024 4:21 PM EST Mixed hyperlipidemia Primary hypertension HM COLONOSCOPY Routine 08/14/2022 HEPATITIS C SCREENING Routine 03/06/2016 from Last 3 Months or Most Recently Relevant to Health Maintenance Results * BD Bone Density DXA Axial Skeleton (01/26/2025 8:58 AM EDT) Anatomical Region Laterality Modality Wrist, Hip, L-spine Bone Densito metry 01/26/2025 12:4 7 PM EDT Impressions 01/26/2025 12:48 PM EDT Osteopenia. Telerad CARYL ([id number]) -------- FINAL REPORT -------- Dictated By: June Dominguez Dictated Date: 01/26/2025 12:47 ET Assigned Physician: June Dominguez Reviewed and Electronically Signed By: June Dominguez Signed Date: 01/26/2025 12:48 ET Workstation ID: [id number] Transcribed By: Self Edit Transcribed Date: 01/26/2025 12:47 ET Narrative 01/26/2025 12:48 PM EDT History: Low estrogen state due to menopause. Chronic glucocorticoid use. Reclast infusion. Comparison: No comparison study at this institution. Findings: Bone densitometry is performed utilizing dual energy x-ray absorptiometry (DXA) in the [employer] unit. The lumbar spine and proximal femora are evaluated in the AP projection. The FRAX questionaire was completed. The results indicate low bone mass (osteopenia), with a right femoral neck T- score of -2.1. The Z score is -0.4, indicating bone mineral density within the range of normal for age. The detailed DEXA report will be mailed to the referring physician's office. [employer] FRAX: 10-year Probability of Fracture: Major Osteoporotic 20.8 percent Hip 5.9 percent. Procedure Note June Dominguez MD - 01/26/2025 History: Low estrogen state due to menopause. Chronic glucocorticoid use.Reclast infusion. Comparison: No comparison study at this institution. Findings: Bone densitometry is performed utilizing dual energy x-ray absorptiometry(DXA) in the [employer] unit. The lumbar spine and proximal femora areevaluated in the AP projection. The FRAX questionaire was completed. The results indicate low bone mass (osteopenia), with a right femoral neckT- score of -2.1. The Z score is -0.4, indicating bone mineral densitywithin the range of normal for age. The detailed DEXA report will bemailed to the referring physician's office. [employer]emur FRAX: 10-year Probability of Fracture: Major Osteoporotic 20.8percent Hip 5.9 percent. IMPRESSION: Osteopenia. Telerad PA ([id number]) -------- FINAL REPORT -------- Dictated By: June Dominguez Dictated Date: 01/26/2025 12:47 ET Assigned Physician: June Dominguez Reviewed and Electronically Signed By: June Dominguez Signed Date: 01/26/2025 12:48 ET Workstation ID: [id number] Transcribed By: Self Edit Transcribed Date: 01/26/2025 12:47 ET us Amando Newman MD IM DXA PROCEDURES Final Result * Creatinine, Serum (10/14/2024 4:12 PM EDT) Creatinine 0.89 0.50 - 1.10 mg/dL LAB CHEMISTRY METHOD 10/14/2024 7:14 PM EDT [facility] eGFR 69 >=60 mL/min/1. 73m2 LAB CHEMISTRY METHOD 10/14/2024 7:14 PM EDT [facility] Comment:Calculation based on the Chronic Kidney Disease Epidemiology Collaboration (CKD-EPI) equation refit without adjustment for race. Blood Venous blood specimen / Unknown Venipuncture / Unknown 10/14/2024 4:12 PM EDT 10/14/2024 4:12 PM EDT us Amando Newman MD LAB BLOOD ORDERABLES Final Resul t [facility] [address] [place] [address], [place] [phone] * MG Mammo Digital Screening w Spenser bilat (08/28/2024 10:12 AM EDT) Anatomical Region Laterality Modality Breast Bilateral Mammography 08/28/2024 5:27 PM EDT Impressions 08/28/2024 5:29 PM EDT No mammographic evidence of malignancy. BREAST DENSITY: B - There are scattered areas of fibroglandular density. BI-RADS CATEGORY: 2 - BENIGN RECOMMENDATION: Screening bilateral mammogram is recommended in 1 year. MAMMO LOCATION: [facility], [address] [place] [address], [id number], . -------- FINAL REPORT -------- Dictated By: Nunu Lopez Dictated Date: 08/28/2024 17:27 ET Assigned Physician: Nunu Lopez Reviewed and Electronically Signed By: Nunu Lopez Signed Date: 08/28/2024 17:29 ET Workstation ID: [id number] Transcribed By: Self Edit Transcribed Date: 08/28/2024 17:27 ET Narrative 08/28/2024 5:29 PM EDT EXAM: Screening Mammogram CLINICAL: 74 years old, Female, routine annual exam. COMPARISON: 08/20/2023 and as far back as 01/15/2020 TECHNIQUE: Bilateral MLO and CC views were obtained digitally with 3-D mammogram (digital breast tomosynthesis). Computer-aided detection was utilized in evaluation of this exam (CAD). Limitations in patient positioning due to kyphosis. Images obtained are the best possible. FINDINGS: Numerous stable chronic focal asymmetries in both breasts. Bilateral dystrophic and secretory calcifications again noted. Chronic bilateral nipple inversion. No new suspicious mass, architectural distortion, or suspicious calcifications. Procedure Note Nunu Lopez MD - 08/28/2024 EXAM: Screening Mammogram CLINICAL: 74 years old, Female, routine annual exam. COMPARISON: 08/20/2023 and as far back as 01/15/2020 TECHNIQUE: Bilateral MLO and CC views were obtained digitally with 3-Dmammogram (digital breast tomosynthesis). Computer-aided detection wasutilized in evaluation of this exam (CAD). Limitations in patientpositioning due to kyphosis. Images obtained are the best possible. FINDINGS: Numerous stable chronic focal asymmetries in both breasts. Bilateraldystrophic and secretory calcifications again noted. Chronic bilateralnipple inversion. No new suspicious mass, architectural distortion, orsuspicious calcifications. IMPRESSION: No mammographic evidence of malignancy. BREAST DENSITY: B - There are scattered areas of fibroglandular density. BI-RADS CATEGORY: 2 - BENIGN RECOMMENDATION: Screening bilateral mammogram is recommended in 1 year. MAMMO LOCATION: [facility], [address] [place] [address], [phone], . -------- FINAL REPORT -------- Dictated By: Nunu Lopez Dictated Date: 08/28/2024 17:27 ET Assigned Physician: Nunu Lopez Reviewed and Electronically Signed By: Nunu Lopez Signed Date: 08/28/2024 17:29 ET Workstation ID: [id number] Transcribed By: Self Edit Transcribed Date: 08/28/2024 17:27 ET Jeremias Wilkins MD IM BI PROCEDURES Final Result * Lipid panel with reflex to direct LDL (04/06/2024 4:21 PM EST) Cholesterol 138 0 - 200 mg/dL LAB CHEMISTRY METHOD 04/06/2024 6:41 PM EST [facility] Triglycerides 109 0 - 150 mg/dL LAB CHEMISTRY METHOD 04/06/2024 6:41 PM EST [facility] HDL 53 >=40 mg/dL LAB CHEMISTRY METHOD 04/06/2024 6:41 PM EST [facility] LDL Calculated 63 0 - 100 mg/dL LAB CHEMISTRY METHOD 04/06/2024 6:41 PM EST [facility] VLDL Cholesterol Chalo 21.8 mg/dL LAB CHEMISTRY METHOD 04/06/2024 6:41 PM EST [facility] Non HDL Chol. (LDL+VLDL) 85 <145 mg/dL LAB CHEMISTRY METHOD 04/06/2024 6:41 PM EST [facility] Chol/HDL Ratio 2.6 0.0 - 4.4 LAB CHEMISTRY METHOD 04/06/2024 6:41 PM EST [facility] Blood Venous blood specimen / Unknown Venipuncture / Unknown 04/06/2024 4:21 PM EST 04/06/2024 4:21 PM EST Kurtis HUTSON LAB BLOOD ORDERABLES Fi nal Result [facility] [address] [place] [address], * Colonoscopy (08/14/2022) Colonoscopy no interpretation , abstracted Anatomical Region Laterality Modality Other Historical Provider HEALTH MAINTENANCE Final Result * Hepatitis C Screening (03/06/2016) Hepatitis C Screening abstracted Historical Provider HEALTH MAINTENANCE Final Result from Last 3 Months or Most Recently Relevant to Health Maintenance Insurance [facility] MEDICARE Member Subscriber Plan / Payer (Ef fective 2022-Present) Name:Sara Ricardo Relation to Subscriber:Self Name:Sara Ricardo Payer ID:[id number] Group ID:[id number] Type:Not on file Address: [address] [place] [id number] Advance Directives Documents on File Type Date Recorded Patient Electronic Prepress Technician Expl anation Health Care Decision (hx) 08/08/2022 HE ALTH CARE PROXY Care Teams Primary Counselor Relationship Specialty Start Date End Date Jeremias Wilkins MD [address] [place] [address] PCP - General Internal Medicine 03/16/21
--- OUTSIDE RECORDS SUMMARY | 2025-02-11 12:14 | XMS_ITS | Encounter Summary ---
Author Organization [facility] Address [address] [place] [address] Care Team Providers Care Marine Underwriter Name Role Phone Jeremias Wilkins MD Primary Care Provider [phone] Reason for Visit * Reason Onset Date Comments Request For Order(s) 02/04/2025 [facility] Service s-Care Plan Encounter Details Date Type Department Care Team (Late Contact Info) Description 02/04/2025 Telephone Internal Medicine [facility] [address] [place] [address] Jeremias Wilkins MD [address] [place] [address] Social History Tobacco Use Types Packs/Day Years [...] AM EDT documented as of this encounter Progress Notes * Savanna Henderson - 02/04/2025 3:50 PM EDT Placed order in Jeremias Wilkins MD Please sign and fax back to [phone] documented in this encounter Plan of Treatment Upcoming Encounters Date Type Department Care Team (Late Contact Info) Description 04/05/2025 9:15 AM EST Office Visit Orthopedic Surgery - [place] [address] [place] [address] [place] [phone] James Cardona, DPM [address] [place] [phone] 04/12/2025 8:00 AM EST Office Visit Internal Medicine - [address] [phone] Kurtis Parekh PA [address] [place] [phone] 04/27/2025 9:30 AM EST Office Visit Endocrinology - [address] [phone] Amando Newman MD [address] [place] [phone] documented as of this encounter Visit Diagnoses Not on filedocumented in this encounter Additional Health Concerns Assessment Noted Time PHQ-9 Depression Total Score: 0 04/06/20 4:09 PM EST A fall risk assessment has been complete d for the patient 04/06/2024 4:07 PM EST documented as of this encounter Care Teams Marine Underwriter Relationship Specialty Start Date End Date Jeremias Wilkins MD [address] [place] [phone] PCP - General Internal Medicine 03/16/21 documented as of this encounter
== END 2025-02-11 10:25 | disposition home or self-care (01) ==
LOC: HO.HSM 10:09
PROVIDERS: PCP Internal Medicine; Referring Provider Internal Medicine; Visit Provider Registered Nurse
DX: G40.909 Epilepsy, unspecified, not intractable, without status epilepticus (principal); R25.1 Tremor, unspecified
CPT/HCPCS: 99214

== ENCOUNTER → 2025-02-11 10:08 | Outpatient (BNVA) | payer MEDICARE, SELFPAY | PROVIDERS: PCP Internal Medicine; Referring Provider Internal Medicine; Visit Provider Registered Nurse | DX: G40.909 Epilepsy, unspecified, not intractable, without status epilepticus (principal); R25.1 Tremor, unspecified; Z79.899 Other long term (current) drug therapy | CPT/HCPCS: 99212 ==